=== PATIENT | female | born 1945 | race Caucasian/White ===

== ENCOUNTER 2020-04-17 11:08 | Emergency (ER) | payer BC, MEDICARE ==
[~2020-04-17] VITALS: Ht 167.6 cm; Wt 82.4 kg
[2020-04-17 11:09] VITALS: BP_DIAS 71
[2020-04-17] MEDS ORDERED: OMEP-218 PO (11:32)
[2020-04-17] MEDS ORDERED: CLOB0.0548 TOP (11:32)
[2020-04-17] MEDS ORDERED: HYDR200T3 PO (11:32)
[2020-04-17] MEDS ORDERED: VENTAER INH (11:32)
[2020-04-17] MEDS ORDERED: QVAR80AE8 INH (11:32)
[2020-04-17] MEDS ORDERED: SYNT112T2 PO (11:32)
[2020-04-17] MEDS ORDERED: ETAN25SY SC (11:32)
[2020-04-17] MEDS ORDERED: PRED5TA PO (11:32)
[2020-04-17] MEDS ORDERED: METO1TAB32 PO (11:32)
[2020-04-17 12:43] LABS: BASO # 0.1 10^3/uL (0.0-0.2); BASO % 0.4 % (0.0-1.0); EOS % 0.4 % (0.0-3.0); HEMATOCRIT 45.7 % (36.0-47.0); HEMOGLOBIN 15.3 g/dl (12.0-15.5); LYMPH # 1.1 10^3/uL (1.5-5.0); LYMPH % 9.8 % (24.0-44.0); MEAN CORPUSCULAR HEMOGLOBIN 31.2 pg (27.0-33.0); MEAN CORPUSCULAR HGB CONC 33.5 g/dl (32.0-36.5); MEAN CORPUSCULAR VOLUME 93.1 fl (80.0-96.0); MONO # 0.8 10^3/uL (0.0-0.8); MONO % 7.2 % (0.0-5.0); NEUTROPHILS # 9.3 10^3/uL (1.5-8.5); NEUTROPHILS % 81.8 % (36.0-66.0); PLATELET COUNT, AUTOMATED 263 10^3/uL (150-450); RED BLOOD COUNT 4.91 10^6/uL (4.00-5.40); WHITE BLOOD COUNT 11.3 10^3/uL (4.0-10.0)
[2020-04-17 13:04] LABS: APPEARANCE, URINE CLEAR (CLEAR); BACTERIA, URINE AUTO NEGATIVE (NEGATIVE); BILIRUBIN, URINE AUTO NEGATIVE (NEGATIVE); BLOOD, URINE BLOOD NEGATIVE (NEGATIVE); COLOR, URINE YELLOW (YELLOW); GLUCOSE, URINE (UA) AUTO NEGATIVE (NEGATIVE); KETONE, URINE AUTO NEGATIVE (NEGATIVE); LEUKOCYTE ESTERASE, URINE AUTO 2+ (NEGATIVE); MUCUS, URINE SMALL (NEGATIVE); NITRITE, URINE AUTO NEGATIVE (NEGATIVE); PROTEIN, URINE AUTO NEGATIVE (NEGATIVE); RBC, URINE AUTO 2 /HPF (0-3); SPECIFIC GRAVITY URINE AUTO 1.023 (1.002-1.035); SQUAMOUS EPITHELIAL CELL UR AU 0 /HPF (0-6); UROBILINOGEN, URINE AUTO 0.2 mg/dL (0.0-2.0); WBC, URINE AUTO 8 /HPF (0-3)
[2020-04-17 13:14] LABS: ALBUMIN 3.5 GM/DL (3.2-5.2); ALT/SGPT 34 U/L (12-78); BILIRUBIN,DIRECT 0.1 MG/DL (0.0-0.2); BILIRUBIN,TOTAL 0.4 MG/DL (0.2-1.0); BLOOD UREA NITROGEN 25 MG/DL (7-18); CALCIUM LEVEL 8.8 MG/DL (8.8-10.2); CARBON DIOXIDE LEVEL 24 MEQ/L (21-32); CHLORIDE LEVEL 108 MEQ/L (98-107); CPK CREATINE PHOSPHOKINASE 114 U/L (26-192); CREATININE FOR GFR 0.57 MG/DL (0.55-1.30); GLOMERULAR FILTRATION RATE > 60.0 (>39); GLUCOSE, FASTING 105 MG/DL (70-100); SODIUM LEVEL 138 MEQ/L (136-145); TOTAL PROTEIN 7.1 GM/DL (6.4-8.2); TROPONIN I < 0.02 NG/ML (< 0.10)
[2020-04-17 13:16] LABS: CK-MB VALUE MASS 2.6 NG/ML (<3.6); MB/CK RELATIVE INDEX 2.28 (< OR =4); THYROID STIMULATING HORMONE 0.692 uIU/ML (0.358-3.740)
[2020-04-17] MEDS ORDERED: DOXY1CAP60 PO (13:39)
[2020-04-17] MEDS ORDERED: ERYT5OIN25 OP (13:39)
[2020-04-17 13:47] VITALS: BP_SYST 140
--- NOTE | 2020-04-17 16:36 | ECGEPIP ---
[facility] - ED Test Date: 2020-04-17 Pat Name: ALEKSANDR MEDRANO Department: Room: - Gender: Female [employer] Mounter: JOSE : 1945 Requested By: Katrin Cisneros Order Number: [id number] Reading MD: Shady Motta Measurements Intervals [place] Rate: 80 P: 4 ME: 154 QRS: 30 QRSD: 97 T: 20 QT: 380 QTc: 439 Interpretive Statements SINUS RHYTHM Baseline artifact Comparison tracing not on file Electronically Signed on 04-17-2020 16:36:47 EDT by Shady Motta
== END 2020-04-17 13:48 | disposition home or self-care (01) ==
LOC: M ED 11:08
DX: F41.9 Anxiety disorder, unspecified (principal); H00.11 Chalazion right upper eyelid; K21.9 Gastro-esophageal reflux disease without esophagitis; Z79.51 Long term (current) use of inhaled steroids; Z79.52 Long term (current) use of systemic steroids; Z79.899 Other long term (current) drug therapy; Z88.0 Allergy status to penicillin; Z88.1 Allergy status to other antibiotic agents; Z88.8 Allergy status to other drugs, medicaments and biological substances

== ENCOUNTER → 2021-04-17 | Outpatient (CLI) | payer MEDICARE ==
[~2021-04-17] MED LIST: CLOB0.0548 TOP; DOXY1CAP60 PO; ERYT5OIN25 OP; ETAN25SY SC; HYDR200T3 PO; METO1TAB32 PO; OMEP-218 PO; PRED5TA PO; QVAR80AE8 INH; SYNT112T2 PO; VENTAER INH
== END ==
LOC: M RAD 10:00
PROVIDERS: ATTEND Student in an Organized Health Care Education/Training Program
DX: R39.89 Other symptoms and signs involving the genitourinary system (principal)